=== PATIENT | female | born 1995 ===

== ENCOUNTER 2021-04-23 11:42 | Inpatient (IN) ==
[~2021-04-23 11:42] MED LIST: *HR* Nalbuphine 10 MG/ML AMPUL IV PRN; Famotidine 20 MG/2 ML VIAL IVP PRN; Lidocaine 1% 20 ML MDV INFILT PRN; Metoclopramide 10 MG/2 ML VIAL IVP PRN; Naloxone 0.4 MG/ML INJ IVP PRN; Ondansetron 4 MG/2 ML VIAL IVP PRN; Ringers Solution, Lactated 1,000 ML IVC SCH
[2021-04-23 11:59] LABS: Basophils % 0.3 %; Eosinophils % 0.3 %; Hematocrit 35.4 % (35.3-44.9); Hemoglobin 11.9 g/dL (11.5-15.4); Immature Granulocytes % 0.7 % (0-4); Lymphocytes # 1.3 K/mcL (0.6-4.6); Lymphocytes % 14.9 %; Mean Corpuscular HGB Conc 33.6 g/dL (31.6-35.5); Mean Corpuscular Hemoglobin 27.9 pg (28.0-33.3); Mean Corpuscular Volume 83.1 fL (83.0-100.0); Mean Platelet Volume 9.5 fL (9.4-12.4); Monocytes # 0.5 K/mcL (0.0-1.3); Platelet Count 235 K/mcL (140-400); Red Blood Count 4.26 M/mcL (3.82-4.97); Red Cell Distribution Width 12.7 % (11.5-14.5); Segmented Neutrophils % 77.8 %; White Blood Count 8.9 K/mcL (4.3-11.1)
[2021-04-23] MEDS ORDERED: EPHEDrine 50 MG/ML VIAL IVP PRN (12:09)
[2021-04-23] MEDS ORDERED: *HR* FentaNYL (PF) 100 MCG/2 ML VIAL EP ONE (12:09)
[2021-04-23] MEDS ORDERED: Epidural Premix (fent/bupiv) 110 ML EP ONE (12:11)
[2021-04-23] MEDS ORDERED: Epidural Premix (fent/bupiv) 110 ML EP SCH (12:15)
[2021-04-23] MEDS ORDERED: Ropivacaine/PF 0.2% 200 ML EP SCH (12:15)
[2021-04-23 12:51] LABS: Influenza A PCR Negative (Negative); Influenza B PCR Negative (Negative); Resp. Syncytial Virus PCR Negative (Negative)
[2021-04-23 12:53] LABS: SARS-CoV-2 by PCR (In House) Negative (Negative)
[2021-04-23 12:59] LABS: Amphetamine Screen,Urine Negative ng/mL (Cutoff=1000); Barbiturate Screen,Urine Negative ng/mL (Cutoff=200); Benzodiazepines Screen,Urine Negative ng/mL (Cutoff=300); Cannabinoid Screen,Urine Positive ng/mL (Cutoff = 50); Cocaine Screen,Urine Negative ng/mL (Cutoff= 300); Opiate Screen,Urine Negative ng/mL (Cutoff=300); Phencyclidine Screen,Urine Negative ng/mL (Cutoff=25)
[2021-04-23] MEDS ORDERED: Oxytocin 20 units/ LR 1000 mL 20 UNIT/1,000 ML BAG IVC ONE (13:24)
[2021-04-23] MEDS ORDERED: Ondansetron ODT 4 MG TAB.RAPDIS SL PRN (14:37)
[2021-04-23] MEDS ORDERED: Rho Immune Globulin 1,500 UNIT SYRINGE IM PRN (14:37)
[2021-04-23] MEDS ORDERED: Benzocaine/Menthol 56 GM AEROSOL SPRAY TP PRN (14:37)
[2021-04-23] MEDS ORDERED: Lanolin 7 G OINT...G. TP PRN (14:37)
[2021-04-23] MEDS: Ibuprofen 600 MG TABLET PO SCH (17:27)
[2021-04-23] MEDS: Oxytocin 20 units/ LR 1000 mL 20 UNIT/1,000 ML BAG IVC SCH ×2 (17:28→23:40)
[2021-04-23] MEDS: Acetaminophen 325 MG TABLET PO SCH (20:33)
[2021-04-24] MEDS: Ibuprofen 600 MG TABLET PO SCH (03:55)
[2021-04-24] MEDS: Acetaminophen 325 MG TABLET PO SCH ×2 (03:55→07:25)
[2021-04-24 08:13] VITALS: BP 100/61; PULSE 71; TEMP 97.9; O2SAT 98
[2021-04-24] MEDS ORDERED: Prenatal Vit/FA 1 EACH TABLET PO SCH (09:00)
[2021-04-24 09:13] LABS: Basophils % 0.3 %; Eosinophils # 0.1 K/mcL (0.0-0.6); Eosinophils % 0.6 %; Immature Granulocytes % 0.5 % (0-4); Lymphocytes # 1.7 K/mcL (0.6-4.6); Lymphocytes % 15.4 %; Mean Corpuscular Hemoglobin 28.8 pg (28.0-33.3); Mean Corpuscular Volume 84.7 fL (83.0-100.0); Mean Platelet Volume 9.4 fL (9.4-12.4); Monocytes # 0.6 K/mcL (0.0-1.3); Monocytes % 5.3 %; Neutrophils # 8.6 K/mcL (1.6-8.9); Platelet Count 180 K/mcL (140-400); Red Blood Count 2.95 M/mcL (3.82-4.97); Red Cell Distribution Width 12.7 % (11.5-14.5); Segmented Neutrophils % 77.9 %; White Blood Count 11.1 K/mcL (4.3-11.1)
[2021-04-24 09:14] LABS: Hemoglobin 8.5 g/dL (11.5-15.4)
== END 2021-04-24 15:40 | disposition home or self-care (01) | DRG 807 ==
LOC: 1NENULAB → 1NENUOBS 17:49
PROVIDERS: ADMIT Advanced Practice Midwife; ATTEND Advanced Practice Midwife